=== PATIENT | female | born 1990 | race Caucasian/White ===

== ENCOUNTER 2017-11-16 17:30 | Emergency (ER) | payer BC ==
[~2017-11-16] VITALS: Ht 162.6 cm; Wt 84.9 kg
[2017-11-16 17:41] VITALS: TEMP 97.8
[2017-11-16 18:25] LABS: COLLECTION METHOD CLEAN CATCH
[2017-11-16 18:31] LABS: BASO # 0.1 (0.0-0.2); BASO % 0.9 % (0.0-2.0); EOS # 0.3 (0.0-0.7); GRAN # 5.8 (1.4-6.5); GRAN % 59.6 % (42.2-75.2); HEMATOCRIT 40.8 % (37.0-47.0); HEMOGLOBIN 13.3 g/dl (12.5-16.0); LYMPH # 2.7 (1.2-3.4); LYMPH % 27.6 % (20.0-51.0); MEAN CELL VOLUME 91 fl (80.0-100.0); MEAN CORPUSCULAR HEMOGLOBIN 30 pg (27.0-31.0); MEAN CORPUSCULAR HGB CONC 33 g/dl (33.0-37.0); MONO # 0.8 (0.1-0.6); MONO % 8.5 % (1.7-9.3); PLATELET COUNT 468 K/mm3 (130-400); RED BLOOD COUNT 4.47 M/mm3 (4.10-5.30); REDCELL DISTRIBUTION WIDTH-CV 13.2 % (11.5-14.5)
[2017-11-16 18:38] LABS: MUCOUS Present /lpf; PH 5 (5-8); URINE APPEARANCE Hazy; URINE BACTERIA Rare /hpf; URINE BILIRUBIN Negative (NEGATIVE); URINE BLOOD 1+ (NEGATIVE); URINE COLOR Amber; URINE GLUCOSE Negative (NEGATIVE); URINE KETONE 1+ (NEGATIVE); URINE LEUKOCYTE ESTERASE 2+ (NEGATIVE); URINE NITRATE Negative (NEGATIVE); URINE PROTEIN(semi-quant) 1+ (NEGATIVE); URINE UROBILINOGEN Negative (NEGATIVE)
[2017-11-16 18:45] LABS: ALBUMIN 4.4 gm/dL (3.5-5.0); BILIRUBIN,TOTAL 0.8 mg/dL (0.0-1.0); C-REACTIVE PROTEIN 1.4 mg/dL (0.0-0.9); CALCIUM 9.9 mg/dL (8.4-10.2); CREATININE, serum 0.76 mg/dL (0.52-1.25); POTASSIUM 3.6 mmol/L (3.4-5.0); TOTAL PROTEIN 7.6 gm/dL (6.4-8.2)
[2017-11-16] MEDS ORDERED: GLUCOPHAGE XR750 MG (19:07)
[2017-11-16] MEDS ORDERED: EFFEXOR 75M75 MG/TAB PO (19:08)
[2017-11-16] MEDS ORDERED: MULTI VITAMINS1 TAB PO (19:08)
[2017-11-16] MEDS ORDERED: ALLEGRA 180MG180 MG PO (19:08)
[2017-11-16] MEDS ORDERED: CRYSELLE 30 MCG1 TAB PO (19:08)
[2017-11-16 19:49] LABS: COLLECTION METHOD CLEAN CATCH
[2017-11-16 19:56] LABS: MUCOUS Present /lpf; PH 6 (5-8); SQUAMOUS EPITHELIAL 0-2 /hpf; URINE APPEARANCE Clear; URINE BACTERIA None Seen /hpf; URINE BILIRUBIN Negative (NEGATIVE); URINE BLOOD 1+ (NEGATIVE); URINE COLOR Yellow; URINE GLUCOSE Negative (NEGATIVE); URINE KETONE 1+ (NEGATIVE); URINE LEUKOCYTE ESTERASE Negative (NEGATIVE); URINE NITRATE Negative (NEGATIVE); URINE PROTEIN(semi-quant) Negative (NEGATIVE); URINE UROBILINOGEN Negative (NEGATIVE)
[2017-11-16] MEDS ORDERED: ZOFRAN ODT4 MG PO (20:30)
[2017-11-16 20:46] VITALS: BP 127/78; PULSE 87
== END 2017-11-16 20:49 | disposition home or self-care (01) ==
LOC: COL.ER 17:30
PROVIDERS: Nurse Practitioner
DX: R19.7 Diarrhea, unspecified (principal); R11.10 Vomiting, unspecified; R10.30 Lower abdominal pain, unspecified; E28.2 Polycystic ovarian syndrome; M79.7 Fibromyalgia; Z90.89 Acquired absence of other organs; Z79.84 Long term (current) use of oral hypoglycemic drugs
CPT/HCPCS: J1885; J2405; J7030

== ENCOUNTER 2017-11-18 16:59 | Emergency (ER) | payer BC ==
[~2017-11-18] VITALS: Ht 162.6 cm; Wt 83.6 kg
[~2017-11-18 16:59] MED LIST: ALLEGRA 180MG180 MG PO; CRYSELLE 30 MCG1 TAB PO; EFFEXOR 75M75 MG/TAB PO; GLUCOPHAGE XR750 MG; MULTI VITAMINS1 TAB PO; ZOFRAN ODT4 MG PO
[2017-11-18 17:10] VITALS: BP 111/71; TEMP 98.1
[2017-11-18 18:00] LABS: COLLECTION METHOD CLEAN CATCH
[2017-11-18 18:06] LABS: BASO # 0.1 (0.0-0.2); BASO % 0.8 % (0.0-2.0); EOS # 0.2 (0.0-0.7); GRAN # 5.5 (1.4-6.5); GRAN % 63.8 % (42.2-75.2); LYMPH # 2.3 (1.2-3.4); LYMPH % 26.7 % (20.0-51.0); MEAN CELL VOLUME 91 fl (80.0-100.0); MEAN CORPUSCULAR HEMOGLOBIN 30 pg (27.0-31.0); MEAN CORPUSCULAR HGB CONC 33 g/dl (33.0-37.0); MEAN PLATELET VOLUME 10.1 fl (7.4-10.4); MONO # 0.5 (0.1-0.6); MONO % 6.3 % (1.7-9.3); PLATELET COUNT 411 K/mm3 (130-400); RED BLOOD COUNT 4.38 M/mm3 (4.10-5.30); REDCELL DISTRIBUTION WIDTH-CV 13.2 % (11.5-14.5)
[2017-11-18 18:16] LABS: MUCOUS Present /lpf; PH 5 (5-8); URINE APPEARANCE Hazy; URINE BACTERIA Rare /hpf; URINE BILIRUBIN Negative (NEGATIVE); URINE BLOOD 1+ (NEGATIVE); URINE COLOR Yellow; URINE GLUCOSE Negative (NEGATIVE); URINE KETONE 1+ (NEGATIVE); URINE LEUKOCYTE ESTERASE 2+ (NEGATIVE); URINE NITRATE Negative (NEGATIVE); URINE PROTEIN(semi-quant) Negative (NEGATIVE); URINE RBC 0-2 /hpf; URINE UROBILINOGEN Negative (NEGATIVE)
[2017-11-18 18:16] LABS: ALBUMIN 4.4 gm/dL (3.5-5.0); BILIRUBIN,TOTAL 0.4 mg/dL (0.0-1.0); C-REACTIVE PROTEIN 1.3 mg/dL (0.0-0.9); CALCIUM 9.8 mg/dL (8.4-10.2); CREATININE, serum 0.79 mg/dL (0.52-1.25); POTASSIUM 3.7 mmol/L (3.4-5.0); TOTAL PROTEIN 7.5 gm/dL (6.4-8.2)
[2017-11-18] MEDS ORDERED: PHENERGAN 25 TA25 MG PO (19:37)
[2017-11-18] MEDS ORDERED: CIPRO 500MG TA500 MG PO (19:37)
[2017-11-18 19:56] VITALS: PULSE 88
== END 2017-11-18 19:56 | disposition home or self-care (01) ==
LOC: COL.ER 16:59
PROVIDERS: Emergency Medicine
DX: N39.0 Urinary tract infection, site not specified (principal); R11.10 Vomiting, unspecified; E28.2 Polycystic ovarian syndrome; R19.7 Diarrhea, unspecified; Z79.84 Long term (current) use of oral hypoglycemic drugs
CPT/HCPCS: J2405; J7030; Q9967

== ENCOUNTER 2018-01-31 19:06 | Emergency (ER) | payer BC ==
[~2018-01-31] VITALS: Ht 162.6 cm; Wt 79.5 kg
[~2018-01-31 19:06] MED LIST changes: +CIPRO 500MG TA500 MG PO; +PHENERGAN 25 TA25 MG PO
[2018-01-31 19:10] VITALS: TEMP 97.8
[2018-01-31] MEDS ORDERED: PRIL40 PO (19:20)
[2018-01-31 19:55] LABS: BASO # 0.1 (0.0-0.2); BASO % 0.7 % (0.0-2.0); EOS # 0.2 (0.0-0.7); EOS % 2.1 % (0-4.0); GRAN # 6.6 (1.4-6.5); GRAN % 64.1 % (42.2-75.2); HEMATOCRIT 40.3 % (37.0-47.0); HEMOGLOBIN 13.3 g/dl (12.5-16.0); LYMPH # 2.4 (1.2-3.4); LYMPH % 22.8 % (20.0-51.0); MEAN CELL VOLUME 90 fl (80.0-100.0); MEAN CORPUSCULAR HEMOGLOBIN 30 pg (27.0-31.0); MEAN CORPUSCULAR HGB CONC 33 g/dl (33.0-37.0); MEAN PLATELET VOLUME 10.3 fl (7.4-10.4); PLATELET COUNT 508 K/mm3 (130-400); REDCELL DISTRIBUTION WIDTH-CV 13.3 % (11.5-14.5)
[2018-01-31 20:11] LABS: ALBUMIN 4.1 gm/dL (3.5-5.0); BILIRUBIN,TOTAL 0.5 mg/dL (0.0-1.0); C-REACTIVE PROTEIN 2.1 mg/dL (0.0-0.9); CALCIUM 9.6 mg/dL (8.4-10.2); CREATININE, serum 0.6 mg/dL (0.52-1.25); POTASSIUM 3.7 mmol/L (3.4-5.0); TOTAL PROTEIN 7.6 gm/dL (6.4-8.2)
[2018-01-31] MEDS ORDERED: CARAFATE 1GM1 G PO (20:37)
[2018-01-31 20:55] VITALS: BP 133/81; PULSE 88
== END 2018-01-31 20:55 | disposition home or self-care (01) ==
LOC: COL.ER 19:06
PROVIDERS: Nurse Practitioner
DX: R10.13 Epigastric pain (principal); M79.7 Fibromyalgia; Z79.84 Long term (current) use of oral hypoglycemic drugs; Z90.49 Acquired absence of other specified parts of digestive tract